=== PATIENT | male | born 2000 | race Caucasian/White ===

== ENCOUNTER 2018-11-02 16:54 | Emergency (ER) | payer MEDICAID ==
[~2018-11-02] VITALS: Ht 175.3 cm; Wt 65.7 kg
[2018-11-02] MEDS ORDERED: KETOROLAC 30 MG/1 ML IVPush ONE (17:30)
[2018-11-02] MEDS ORDERED: KETOROLAC 30 MG/1 ML ONE (17:37)
--- NOTE | 2018-11-02 17:44 | NUR ---
PT MEDICATED WITH TORADOL. URINE COLLECTED AND SENT TO LAB. PT RESTING WITH NO COMPLAINTS AND IS AWAITING U/S.
[2018-11-02 18:15] LABS: MICROSCOPIC AUTO
[2018-11-02 18:17] LABS: CULTURE INDICATED? NO
[2018-11-02] MEDS ORDERED: ASPIRIN 325 MG TABLET ONE (19:37)
--- NOTE | 2018-11-02 19:41 | NUR ---
PT MEDICATED WITH ASPIRIN. PHYSICIAN AT BEDSIDE. UPDATE POC. VSS.
[2018-11-02] MEDS ORDERED: ASPIRIN 325 MG TABLET PO ONE (20:00)
[2018-11-02 20:09] VITALS: BP 115/74
== END 2018-11-02 20:12 | disposition home or self-care (01) ==
LOC: ED 17:20
DX: I82.421 Acute embolism and thrombosis of right iliac vein (principal)
CPT/HCPCS: 76870; 81001; 87491; 87591; 96374; 99284; J1885

== ENCOUNTER 2020-06-24 14:18 | Emergency (ER) | payer MEDICAID ==
--- NOTE | 2020-06-24 15:07 | NUR ---
nil x1. as
--- NOTE | 2020-06-24 15:10 | NUR ---
nil x2 as
--- NOTE | 2020-06-24 15:22 | NUR ---
nil x3. as
== END 2020-06-24 16:03 | disposition left against medical advice (07) ==
LOC: ED 15:57
DX: S61.412A Laceration without foreign body of left hand, initial encounter (principal); Z53.21 Procedure and treatment not carried out due to patient leaving prior to being seen by health care provider; X58.XXXA Exposure to other specified factors, initial encounter; Y93.89 Activity, other specified; Y92.89 Other specified places as the place of occurrence of the external cause; Y99.8 Other external cause status

== ENCOUNTER 2021-03-26 20:52 | Emergency (ER) | payer MEDICAID ==
[~2021-03-26] VITALS: Ht 175.3 cm; Wt 63.6 kg
[2021-03-26 21:17] VITALS: BP 127/70
[2021-03-26] MEDS ORDERED: FAMOTIDINE 20 MG TABLET ONE (21:19)
[2021-03-26] MEDS ORDERED: DIPHENHYDRAMINE 50 MG/ML, 1ML ONE (21:19)
[2021-03-26] MEDS ORDERED: DIPHENHYDRAMINE 50 MG/ML, 1ML IM ONE (21:30)
[2021-03-26] MEDS ORDERED: FAMOTIDINE 20 MG TABLET PO/NG ONE (21:30)
--- NOTE | 2021-03-26 21:31 | NUR ---
pt presents to ed with allergic rxn after peeling shrimp. pt states itchy throat and has hives throughout. meds given per order, pt tolerated well.
== END 2021-03-26 22:29 | disposition home or self-care (01) ==
LOC: ED 21:00
DX: T78.1XXA Other adverse food reactions, not elsewhere classified, initial encounter (principal); R21 Rash and other nonspecific skin eruption; F17.200 Nicotine dependence, unspecified, uncomplicated; X58.XXXA Exposure to other specified factors, initial encounter
CPT/HCPCS: 96372; 99283; J1200